=== PATIENT | female | born 1975 | race Caucasian/White ===

== ENCOUNTER 2021-10-06 20:47 | Emergency (ER) | payer OTHER ==
[2021-10-06] MEDS ORDERED: MORPHINE SULFATE 4 MG/ML SYRINGE IV STA (22:25)
[2021-10-06] MEDS ORDERED: SODIUM CHLORIDE 0.9% 1,000 ML IV STA (22:25)
[2021-10-06] MEDS ORDERED: diphenhydrAMINE 50 MG/ML 1 ML VIAL IVP STA ×2 (22:27→22:41)
[2021-10-06] MEDS ORDERED: PROCHLORPERAZINE INJ 10 MG/2 ML VIAL IVP STA ×2 (22:27→22:41)
--- NOTE | 2021-10-06 22:27 | ED ---
Headache HPI - General Chief Complaint: Recheck/Abnormal Lab/Rx Stated Complaint: High BP Time Seen by Provider: 10/06/21 22:09 Source: RN notes reviewed, old records reviewed Mode of arrival: ambulatory Limitations: no limitations - History of Present Illness Initial Comments: This is a 45-year-old female to the emergency department for evaluation patient presents today for evaluation of headache. Headache with elevated blood pressure. Patient has history of recent diagnosis of blood pressure has been taking her hydrochlorothiazide with no significant improvement blood pressure home. Patient also complaining of migraine type headache states the headache comes along with her blood pressure was rechecked at home. Otherwise patient has no chest pain no other complaints no other medical history takes no medications MD Complaint: headache, "migraine", other (History of hypertension) -: unknown Onset Description: gradual Location: frontal Severity: mild Severity scale (1-10): 2 Quality: throbbing Consistency: intermittent Improves With: nothing Worsens With: none Context: occurred at rest Associated Symptoms: nausea Other Symptoms: eye pain/redness Treatments Prior to Arrival: none - Related Data Previous Rx's Medication Instructions Recorded Lisinopril [Prinivil] 10 mg PO DAILY #60 tab 10/06/21 Allergies Allergy/AdvReac Type Severity Reaction Status Date / Time cephalexin [From Keflex] Allergy Rash/Hives Verified 10/06/21 21:55 Review of Systems ROS Statement: Those systems with pertinent positive or pertinent negative responses have been documented in the HPI. ROS Other: All systems not noted in ROS Statement are negative. Past Medical History Past Medical History: No Reported History History of Any Multi-Drug Resistant Organisms: None Reported Past Surgical History: No Surgical Hx Reported Past Psychological History: No Psychological Hx Reported Smoking Status: Never smoker Past Alcohol Use History: None Reported Past Drug Use History: None Reported General Exam General appearance: alert, in no apparent distress Head exam: Present: atraumatic, normocephalic, normal inspection Eye exam: Present: normal appearance, PERRL, EOMI. Absent: scleral icterus, conjunctival injection, periorbital swelling ENT exam: Present: normal exam, mucous membranes moist Neck exam: Present: normal inspection. Absent: tenderness, meningismus, lymphadenopathy Respiratory exam: Present: normal lung sounds bilaterally. Absent: respiratory distress, wheezes, rales, rhonchi, stridor Cardiovascular Exam: Present: regular rate, normal rhythm, normal heart sounds. Absent: systolic murmur, diastolic murmur, rubs, gallop, clicks GI/Abdominal exam: Present: soft, normal bowel sounds. Absent: distended, tenderness, guarding, rebound, rigid Extremities exam: Present: normal inspection, full ROM, normal capillary refill. Absent: tenderness, pedal edema, joint swelling, calf tenderness Back exam: Present: normal inspection Neurological exam: Present: alert, oriented X3, CN II-XII intact Psychiatric exam: Present: normal affect, normal mood Skin exam: Present: warm, dry, intact, normal color. Absent: rash Course Vital Signs 10/06/21 10/06/21 10/06/21 21:48 22:32 22:50 Temperature 97.7 F Pulse Rate 60 63 Pulse Rate [ 60 [employer] Systems Software [employer] ] Respiratory 19 18 Rate Blood Pressure 185/110 179/111 O2 Sat by Pulse 98 99 Oximetry - Reevaluation(s) Reevaluation #1: 10/06/21 22:05 Medical records reviewed Reevaluation #2: 10/06/21 22:05 Patient informed of results and questions answered Reevaluation #3: 10/06/21 22:55 Patient given medication headache is improved and okay for discharge Medical Decision Making - Medical Decision Making 45 female new-onset hypertension, will be started on hypertensive medication and can be discharged home Disposition Clinical Impression: Hypertension Disposition: HOME SELF-CARE Condition: Good Instructions (If sedation given, give patient instructions): Hypertension (ED) Prescriptions: Lisinopril [Prinivil] 10 mg PO DAILY #60 tab Is patient prescribed a controlled substance at d/c from ED?: No Referrals: Miriam Tracy DO [Primary Care Provider] - 1-2 days Time of Disposition: 22:50
[2021-10-06] MEDS ORDERED: lisinopriL 10 MG TAB PO STA (22:41)
[2021-10-06] MEDS ORDERED: PROCHLORPERAZINE 5 MG TAB PO STA (22:47)
[2021-10-06] MEDS ORDERED: diphenhydrAMINE 25 MG CAP PO STA (22:47)
[2021-10-06] MEDS ORDERED: ETODOLAC 400 MG TAB PO STA (22:48)
[2021-10-06 22:50] VITALS: BP 179/111; PULSE 63; RESP 18
[2021-10-06 23:16] VITALS: TEMP 98.2
== END 2021-10-06 23:15 | disposition home or self-care (01) ==
LOC: EC 20:47
DX: I10 Essential (primary) hypertension (principal); R51.9 Headache, unspecified; R11.0 Nausea; Z88.1 Allergy status to other antibiotic agents
CPT/HCPCS: 99283; S0183